=== PATIENT | male | born 1985 | race Caucasian/White ===

== ENCOUNTER 2018-12-27 15:44 | Emergency (ER) | payer OTHER, BC ==
--- NOTE | 2018-12-27 16:31 | EDM.PDOC ---
ED HPI GENERAL MEDICAL PROBLEM - General Chief Complaint: Head Injury Stated Complaint: FELL HIT HEAD BLURRY VISION Time Seen by Provider: 12/27/18 15:54 Source of Information: Reports: Patient, RN Notes Reviewed, Other (Co-worker) History Limitations: Reports: No Limitations - History of Present Illness INITIAL COMMENTS - FREE TEXT/NARRATIVE: The patient states that he slipped on ice at work around 15:20 this afternoon, falling backwards, striking the back of his head. He was not knocked unconscious. He states that he initially felt dazed, and that the back of his neck was throbbing and sore. He states that he initially had some lightheadedness, which has since resolved. He also reports having blurry vision , seeing squiggly lines, which has also since resolved. At this time, the patient states that he feels back to normal. No prior head injury. The patient does not have a PCP. Headache Pain Score (Numeric/FACES): 6 - Related Data Allergies Allergy/AdvReac Type Severity Reaction Status Date / Time No Known Allergies Allergy Verified 12/27/18 15:54 Home Meds: Home Meds . 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 ED EXAM, HEAD INJURY - Physical Exam Exam: See Below Exam Limited By: No Limitations General Appearance: Alert, WD/WN, No Apparent Distress Head: Normocephalic, Scalp Hematoma (slight, occipital), Scalp Tenderness (mild , occipital). No: Scalp Abrasions, Scalp Ecchymosis, Soto's Sign Eyes: Bilateral Eye: EOMI, Normal Inspection, PERRL Ears: Normal External Exam, Normal Canal, Hearing Grossly Normal, Normal TMs. No: Mastoid Tenderness Nose: Normal Inspection, Normal Mucousa, No Blood Throat/Mouth: Normal Inspection, Normal Lips, Normal Teeth, Normal Gums, Normal Oropharynx, Normal Voice, No Airway Compromise Neck: Non-Tender, Full Range of Motion, Normal Alignment, Normal Inspection, Muscle Spasm (bilateral paracervical). 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 There is no perseveration of questions or answers. He suffered a ground-level fall, striking the back of his head, but there was no loss of consciousness, and his neurologic exam is completely normal. He complained of initial lightheadedness, which has completely resolved, as well as some blurry vision earlier, which has also resolved. While his neck feels somewhat sore, he is able to move his head in all directions without any difficulty. Based on current guidelines, I do not see an indication for a CT scan of either his head or neck, however, the patient lives here in [place], and I advised him that should his symptoms worsen, he should return to the ED for reevaluation. Departure - Departure Time of Disposition: 16:28 Disposition: Home, Self-Care 01 Condition: Good Clinical Impression: Fall due to ice or snow, Scalp contusion - Discharge Information *PRESCRIPTION DRUG MONITORING PROGRAM REVIEWED*: Not Applicable *COPY OF PRESCRIPTION DRUG MONITORING REPORT IN PATIENT DARIUS: Not Applicable Forms: ED Department Discharge, ED Return to Work/School Form Additional Instructions: You were seen in the emergency room after slipping on ice at work, falling, and striking the back of your head. Based on your history and physical examination, you do not have a concussion. The pros and cons of the CT scan of your head and/or neck were discussed, and based on current guidelines, a CT scan is not indicated at this time. We recommend that you apply an ice pack to the back of her head, to help minimize swelling, and take [id number] ibuprofen, 2-3 tablets (400-600 mg ) every 8 hours, with food, as needed for discomfort. If any other problems, including a worsening headache, blurry vision, and the development of nausea or vomiting, or any other concerns, please do not hesitate to return to the ER for re-evaluation.
== END 2018-12-27 16:40 | disposition home or self-care (01) ==
LOC: JD.ED 15:44
DX: S00.03XA Contusion of scalp, initial encounter (principal); W00.0XXA Fall on same level due to ice and snow, initial encounter; Z87.891 Personal history of nicotine dependence
CPT/HCPCS: 99282; 99283